=== PATIENT | female | born 1955 | race Caucasian/White ===

== ENCOUNTER → 2017-11-14 14:22 | Outpatient (CLI) | payer OTHER, SELFPAY ==
[2017-11-14 15:52] LABS: Absolute Lymphocyte Count 1.45 X10^3/ul (0.83-4.51); Absolute Neutrophil Count 3.7 X10^3/uL (2.0-7.7); Basophil# 0.02 X10^3/uL; Basophil% 0.3 % (0-1); Eosinophil# 0.14 X10^3/uL; Eosinophils% 2.4 % (0-5); Hematocrit 40.9 % (37-47); Hemoglobin 13.5 g/dl (12.0-15.0); Lymphocyte # 1.45 X10^3/ul (4.0); Mean Corpuscular Hgb 31.4 pg (27.0-32.0); Mean Corpuscular Volume 95.1 fL (81-99); Mean Platelet Vol. 12.5 fl (6.2-12.0); Monocyte# 0.53 X10^3/uL; Monocyte% 9.1 % (0-10); Neutrophil # 3.67 X10^3/uL (2.7-7.7); Neutrophil % 63.2 % (47-70); Platelet Count 142 K/mm3 (150-450); RBC Distribution Width CV 13.5 % (11.6-14.6); RBC Distribution Width SD 45.5 fl (35.1-43.9); White Blood Count 5.8 K/mm3 (4.4-11.0)
[2017-11-14 16:19] LABS: POSITIVE COUNT NO; POSITIVE DIFFERENTIAL NO; POSITIVE MORPHOLOGY NO
[2017-11-14 16:20] LABS: Erythrocyte Sedimentation Rate 5 mm/hr (0-30)
[2017-11-14 16:26] LABS: ALB/GLOB Ratio 1.1 RATIO (0.9-2.4); AST(SGOT) 13 U/L (15-37); Alanine Aminotransfer ALT/SGPT 16 U/L (13-56); Albumin, Serum 3.6 g/dL (3.2-5.0); Alkaline Phosphatase 68 U/L (45-117); Anion Gap 6 (5-15); BUN 22 mg/dL (7-18); BUN/Creat Ratio 22.9 RATIO (10-20); CRP 4.81 mg/L (0.0-3.0); Calcium,Total 8.8 mg/dL (8.5-10.1); Chloride 107 mmol/L (98-107); Creatinine, Serum 0.96 mg/dL (0.55-1.02); EST Glomerular Filtration Rate 63 mL/min (>60); Est Glom Filt Rate - Afr Amer 76 mL/min (>60); Globulin 3.3 g/dL (2.2-4.2); Glucose 90 mg/dL (74-106); Potassium 4.1 mmol/L (3.5-5.1); Protein, Total 6.9 g/dL (6.4-8.2); Sodium Level 144 mmol/L (136-145)
== END ==
PROVIDERS: Family Provider Student in an Organized Health Care Education/Training Program; PCP Student in an Organized Health Care Education/Training Program; Visit Provider Internal Medicine Rheumatology
DX: M06.4 Inflammatory polyarthropathy (principal); M35.00 Sjogren syndrome, unspecified; E03.9 Hypothyroidism, unspecified
CPT/HCPCS: 36415; 80053; 85025; 85652; 86140

== ENCOUNTER → 2018-06-04 10:44 | Outpatient (CLI) | payer OTHER, SELFPAY ==
[2016-03-08 13:14] VITALS: BMI 31.7
[2018-06-04 12:06] LABS: Absolute Lymphocyte Count 1.29 X10^3/ul (0.83-4.51); Absolute Neutrophil Count 3.2 X10^3/uL (2.0-7.7); Basophil# 0.04 X10^3/uL; Basophil% 0.8 % (0-1); Eosinophil# 0.12 X10^3/uL; Eosinophils% 2.4 % (0-5); Hematocrit 44.2 % (37-47); Hemoglobin 14.7 g/dl (12.0-15.0); Lymphocyte # 1.29 X10^3/ul (4.0); Lymphocyte % 25.3 % (19-41); Mean Corp Hgb Conc 33.3 g/gl (32-36); Mean Corpuscular Hgb 30.8 pg (27.0-32.0); Mean Corpuscular Volume 92.7 fL (81-99); Mean Platelet Vol. 12.3 fl (6.2-12.0); Monocyte# 0.49 X10^3/uL; Monocyte% 9.6 % (0-10); Neutrophil # 3.15 X10^3/uL (2.7-7.7); Neutrophil % 61.9 % (47-70); Platelet Count 155 K/mm3 (150-450); RBC Distribution Width CV 13.7 % (11.6-14.6); RBC Distribution Width SD 45.1 fl (35.1-43.9); Red Blood Count 4.77 M/mm3 (4.2-5.4); White Blood Count 5.1 K/mm3 (4.4-11.0)
[2018-06-04 12:08] LABS: POSITIVE COUNT NO; POSITIVE DIFFERENTIAL NO; POSITIVE MORPHOLOGY NO
[2018-06-04 12:15] LABS: Erythrocyte Sedimentation Rate 16 mm/hr (0-30)
[2018-06-04 12:19] LABS: ALB/GLOB Ratio 0.9 RATIO (0.9-2.4); AST(SGOT) 12 U/L (15-37); Alanine Aminotransfer ALT/SGPT 17 U/L (13-56); Albumin, Serum 3.4 g/dL (3.2-5.0); Alkaline Phosphatase 70 U/L (45-117); Anion Gap 8 (5-15); BUN 18 mg/dL (7-18); BUN/Creat Ratio 18.3 RATIO (10-20); CRP 3.32 mg/L (0.0-3.0); Calcium,Total 8.8 mg/dL (8.5-10.1); Chloride 109 mmol/L (98-107); Creatinine, Serum 0.98 mg/dL (0.55-1.02); EST Glomerular Filtration Rate 61 mL/min (>60); Est Glom Filt Rate - Afr Amer 74 mL/min (>60); Globulin 3.7 g/dL (2.2-4.2); Glucose 67 mg/dL (74-106); Protein, Total 7.1 g/dL (6.4-8.2); Sodium Level 144 mmol/L (136-145)
== END ==
PROVIDERS: Family Provider Student in an Organized Health Care Education/Training Program; PCP Student in an Organized Health Care Education/Training Program; Referring Provider Internal Medicine Rheumatology; Visit Provider Internal Medicine Rheumatology
DX: M06.4 Inflammatory polyarthropathy (principal); M35.00 Sjogren syndrome, unspecified; E03.9 Hypothyroidism, unspecified
CPT/HCPCS: 36415; 80053; 85025; 85652; 86140

== ENCOUNTER → 2020-10-16 11:44 | Outpatient (CLI) | payer OTHER, SELFPAY ==
--- NOTE | 2020-10-18 14:39 | STRESSREP ---
Stress Test Report Date: 10/16/2020 Procedure: Exercise tolerance test Indications: Chest pain Consent: Per the patient Procedure: The patient exercised on a Markos protocol for 6 minutes achieving a peak heart rate of 166 bpm (105% predicted maximal heart rate) with a peak blood pressure 180/60 mmHg and a peak MET capacity of approximately 7 MET's. The baseline ECG demonstrated normal sinus rhythm. The peak exercise ECG demonstrated no significant ischemic changes. [There were no cardiac dysrhythmias pretest, during exercise, or recovery]. The functional capacity was considered normal for age. The patient had no complaint of chest discomfort during exercise or recovery. The examination was discontinued secondary to dyspnea. Impression: 1. Technically adequate (percent predicted maximal heart rate greater than 85%) exercise tolerance test 2. Stress test is negative for exercise-induced chest pain. 3. Stress test test is negative for exercise-induced EKG changes of ischemia. 4. Functional capacity is normal for age This note was generated with Impress[employer] software. It may contain incorrect words, spelling, and punctuation that were not noted in checking the note before signing.
== END ==
PROVIDERS: PCP Student in an Organized Health Care Education/Training Program; Referring Provider Student in an Organized Health Care Education/Training Program; Visit Provider Student in an Organized Health Care Education/Training Program
DX: R07.9 Chest pain, unspecified (principal); R53.83 Other fatigue; R06.00 Dyspnea, unspecified
CPT/HCPCS: 93017

== ENCOUNTER 2020-12-16 15:56 | Emergency (ER) | payer OTHER, SELFPAY ==
[2020-12-16 15:57] VITALS: BP 164/92; PULSE 78; RESP 14; TEMP 36.6; O2SAT 96; BMI 32.1
--- NOTE | 2020-12-16 16:41 | EDS_ITS ---
HPI History of Present Illness Chief Complaint: Upper Extremity Injury Informant: patient Occured/Mechanism Mechanism/Context: Yes injury Onset/Context/Timing Onset: Today Context: Sudden Onset Timing: Continuous Current Severity: Mild Maximum Severity: Mild Narrative Narrative: 65-year-old female right hand dominant. Prior carpal tunnel intake remains tenosynovitis surgery in the left wrist. Tripped and fell today at home landed awkwardly on her left wrist also struck her left cheek and left knee on the ground. Denies any LOC not on any blood thinners. No other complaints. Prior similar symptoms: No Recent Illness/Hospitalization: No PFSH PFSH Home Medications levothyroxine 75 mcg PO DAILY 03/08/16 [History Last Taken Unknown] Allergy/AdvReac Type Severity Reaction Status Date / Time Sulfa (Sulfonamide Allergy Unknown Verified 12/16/20 15:59 Antibiotics) Social History Smoking Status: Never smoker ROS ROS ED ROS Narrative Denies recent illness. Review of Systems ROS Unobtainable: Denies due to encephalopathy Eyes Eyes: Denies change in vision ENT ENT ED: Reports ear pain; Denies sore throat Cardiovascular Cardiovascular: Denies chest pain Respiratory/Chest Respiratory/Chest: Denies cough or dyspnea Gastrointestinal Gastrointestinal: Denies abdominal pain, diarrhea, nausea or vomiting Genitourinary Genitourinary ED: Denies dysuria Musculoskeletal Musculoskeletal: Denies myalgias Integumentary Denies rash Neurologic Neurologic: Denies headache(s) Psychiatric Psychiatric: Denies depression Endocrine Endocrinology: Denies polyuria Hematologic/Lymphatic Hematologic/Lymphatic: Denies easy bruising Allergic/Immunologic Allergic/Immunologic ED: Denies urticaria EXAM Physical Exam Narrative Exam Narrative: Well-appearing female no acute distress. Vital signs stable afebrile. Minor abrasion left cheek. Scalp no hematoma. Neck nontender. Lungs are clear. Heart regular rhythm. Chest were nontender. Abdomen soft nontender. Back nontender. Mild abrasion left knee normal range of motion no deformity. Left wrist mildly tender. No gross bony deformity. Limited flexion extension due to pain. Able to open close her hand. Normal radial pulse. Proximal forearm left elbow and shoulder are unremarkable. Right upper extremity is unremarkable. Neurologically she is awake alert with no focal motor deficits. Const Vital Signs: 12/16/20 15:57 Temperature 97.8 F Temperature Source Temporal Pulse Rate 78 Respiratory Rate 14 Blood Pressure 164/92 H Blood Pressure Mean 116 Pulse Ox 96 Oxygen Delivery Method Room Air Positive well nourished and well developed General Appearance ED: well developed HEENT Reports moist mucous membranes HEENT Narrative: Mild abrasion left cheek. Pupils round reactive light. normocephalic and trauma Eyes PERRL and EOMs intact bilaterally Neck full ROM and supple General: Negative for tenderness Chest Wall inspection of chest normal and palpation of chest normal Resp normal respiratory effort and clear to auscultation bilaterally Cardio regular rate, regular rhythm and no murmurs GI non-tender and non-distended Auscultation: normoactive bowel sounds Palpation: soft; Negative for tender Back/Spine no CVA tenderness General Back: Negative for CVA tenderness Cervical Spine: Negative for cervical spine tenderness Thoracic Spine / Upper Back: Negative for thoracic spinal tenderness Lumbar Spine / Lower Back: Negative for lumbar spinal tenderness Extremity normal to inspection and full ROM Extremity Narrative: Except minor abrasion left knee with normal flexion- extension. Also left wrist tender with decreased range of motion. General Extremety ED: Negative for edema General Extremity: Negative for edema Neuro oriented x3 Sensorium / Orientation: alert, oriented to person, oriented to place, oriented to time and orientation impaired Psych mental status grossly normal Mood & Affect: Negative for depressed or tearful Skin Lesions: no lesions Rashes: no rashes MDM MDM MDM Narrative Medical decision making narrative: Patient tripped and fell rule out wrist fracture x-ray pending. Also minor left cheek and knee abrasions. Radiography Diagnostic Testing: Wrist x-ray 3 views interpreted by myself shows no acute abnormality. No fracture or dislocation. Went over x-ray with patient. Discharge Plan Triage Chief Complaint: Upper Extremity Injury ED Provider: Omi Negron Dx/Rx/DC Orders Clinical Impression: Left wrist sprain, Abrasion of face, Abrasion of knee, left Instructions: ED Wrist Sprain Prescriptions: No Action levothyroxine 75 MCG tablet 75 mcg PO DAILY RF: 0 Primary Care Provider: Babar De La Garza Referrals: Babar De La Garza DO [Primary Care Provider] - 1 Week if not improving Activity Restrictions/Additional Instructions: Your x-rays are unremarkable. Ice and elevate your left wrist. Tylenol for pain and swelling and Motrin. If not improving in 1 week have it rossy-rayed at this time there is no broken bones noted. Disposition Disposition: Home, self care
--- NOTE | 2020-12-16 16:45 | RAD_ITS ---
STUDY: X-RAY - LEFT WRIST REASON FOR EXAM: Female, 65 years old. wrist injury TECHNIQUE: 3 view(s) of the wrist were obtained. COMPARISON: None. FINDINGS: Normal visualized distal radius and ulna. Normal radiocarpal articulation. Normal distal radioulnar articulation. Normal carpal bones. Normal carpal articulations. There is degenerative arthrosis of the carpometacarpal articulation of the thumb. Normal second through fifth carpometacarpal articulations. Normal visualized metacarpal bones. The soft tissue structures are unremarkable. There is no demonstrated acute fracture. RAD/Wrist min 3 Views IMPRESSION: No definite acute or significant abnormality seen. Electronically Signed: Tal Hawk MD at 18:00 EDT , Service support ,
== END 2020-12-16 18:04 | disposition home or self-care (01) ==
LOC: ED 17:26
PROVIDERS: Emergency Provider Emergency Medicine; PCP Student in an Organized Health Care Education/Training Program
DX: S63.502A Unspecified sprain of left wrist, initial encounter (principal); S00.81XA Abrasion of other part of head, initial encounter; S80.212A Abrasion, left knee, initial encounter; W01.0XXA Fall on same level from slipping, tripping and stumbling without subsequent striking against object, initial encounter; Y93.9 Activity, unspecified; Y92.009 Unspecified place in unspecified non-institutional (private) residence as the place of occurrence of the external cause
CPT/HCPCS: 73110; 99282

== ENCOUNTER → 2021-01-15 12:23 | Outpatient (CLI) | payer OTHER, SELFPAY ==
[2020-12-16 15:57] VITALS: BMI 32.1
--- NOTE | 2021-01-15 12:28 | US_ITS ---
STUDY: RENAL ULTRASOUND - COMPLETE REASON FOR EXAM: Female, 65 years old. Recurring UTIs. TECHNIQUE: Ultrasound evaluation of the kidneys was performed with real-time and static menard-scale imaging. COMPARISON: None. FINDINGS: RIGHT KIDNEY: Normal location of the right kidney, which is normal in size. The right kidney measures 9.5 cm x 5 cm x 3.8 cm. There is a normal cortex of the right kidney. The renal cortex measures 1.1 cm. There is no right renal mass or cyst. There are no right renal calculi. There is no right hydronephrosis. DISTAL RIGHT URETER: There is non-visualization of the distal right ureter. There is no demonstrated right ureterovesical junction calculus. There is a visualized right ureteral jet. LEFT KIDNEY: Normal location of the left kidney, which is normal in size. The left kidney measures 10.4 cm x 4.5 cm x 4.3 cm. There is a normal cortex of the left kidney. The renal cortex measures 1.1 cm. There is no left renal mass or cyst. There are no left renal calculi. There is no left hydronephrosis. DISTAL LEFT URETER: There is non-visualization of the distal left ureter. There is no demonstrated left ureterovesical junction calculus. There is a visualized left ureteral jet. BLADDER: The distended urinary bladder has a volume of 121 ml. There is a normal wall thickness of the distended urinary bladder. There is no demonstrated mass within the urinary bladder. There are no demonstrated bladder calculi. US/Kidney and Bladder IMPRESSION: Normal ultrasound of the kidneys and urinary bladder. Electronically Signed: Graham Colvin MD at 21:54 EDT , Service support ,
== END ==
PROVIDERS: PCP Student in an Organized Health Care Education/Training Program; Referring Provider Urology; Visit Provider Urology
DX: N39.0 Urinary tract infection, site not specified (principal)
CPT/HCPCS: 76770

== ENCOUNTER 2023-05-29 14:44 | Emergency (ER) | payer OTHER, SELFPAY ==
[2023-05-29 14:45] VITALS: BP 140/72; PULSE 69; RESP 16; TEMP 36.2; O2SAT 96; BMI 30.2
[2023-05-29 15:39] LABS: Mucous, Urine 0 SEEN /hpf (<or=2+); Red Blood Cells-Urine 0 SEEN /hpf (0-5); Squamous Epithelial Cells - UA 0 SEEN /hpf (5-10); White Blood Cells 0 SEEN /hpf (0-5)
--- NOTE | 2023-05-29 15:41 | US_ITS ---
EXAM: US ABDOMEN LIMITED, RIGHT UPPER QUADRANT CLINICAL INDICATION: RUQ pain TECHNIQUE: Real-time ultrasound of the right upper quadrant with image documentation. COMPARISON: No relevant prior studies available. FINDINGS: LIVER: Normal. There is normal echotexture. No focal hepatic lesion. No intrahepatic biliary ductal dilation. GALLBLADDER: Normal. No shadowing gallstone. No gallbladder wall thickening is demonstrated. No pericholecystic fluid. Negative sonographic Perry''s sign. COMMON BILE DUCT: Unremarkable as visualized. The proximal common bile duct is normal size. PANCREAS: Unremarkable as visualized. No focal abnormality is demonstrated in the pancreas. No pancreatic ductal dilatation. RIGHT KIDNEY: Normal. There is no hydronephrosis. No shadowing calculus. No focal lesion or perinephric collection is demonstrated. US/Gallbladder IMPRESSION: Normal right upper quadrant ultrasound. Electronically Signed: Salvador Colon MD at 16:53 EST ,
--- NOTE | 2023-05-29 15:41 | ED.VIS.GI ---
HPI HPI - GI History of Present Illness Chief Complaint: Abd Pain Narrative Narrative: 68-year-old female past medical history of hypothyroidism presents with right upper quadrant pain that she has had since yesterday evening. She denies that it is associated with food. She states that it is a fleeting pain and discomfort that is in the right upper quadrant. It comes every 10 to 12 seconds and only lasts perhaps a 1 to 3 seconds. She called her primary care provider who advised her to come in for evaluation. She denies any fevers or chills, no nausea or vomiting, no exacerbating or alleviating factors. She does not have any dysuria or hematuria, no problems with bowel movements, last normal bowel movement was this morning. She presents because of the right upper quadrant pain. She denies any past abdominal surgical history. [facility] Home Medications levothyroxine 75 mcg tablet 75 mcg PO DAILY 03/08/16 [History Last Taken Unknown] Allergy/AdvReac Type Severity Reaction Status Date / Time Sulfa (Sulfonamide Allergy Unknown Verified 05/29/23 14:44 Antibiotics) Social History Smoking Status: Never smoker ROS ROS ED ROS Narrative Constitutional: No fever, no chills. HEENT: No sore throat. No neck pain. No loss of vision. No rhinorrhea. Cardiovascular: No chest pain. No palpitations. No pedal edema. Respiratory: No cough, no shortness of breath. Abdominal: Right upper quadrant abdominal pain. Occurs every 10 to 12 seconds, last 1 to 3 seconds. No nausea. No vomiting. Genitourinary: No dysuria. No hematuria. Musculoskeletal: No myalgias. No arthralgias. Neurologic: No headaches. No dizziness. No lightheadedness. Skin: No rash. No change in color. Psychiatric: No depression. No anxiety. EXAM Physical Exam Narrative Exam Narrative: Afebrile. Vital signs noted. HEENT: Normocephalic. Atraumatic. PERRL, EOMI. Neck soft and supple. No point tenderness or step off. Cardiovascular: Regular rate and rhythm. No murmurs, rubs, or gallops appreciated. Respiratory: No tachypnea. Lungs clear to auscultation bilaterally. Gastrointestinal: Abdomen soft, minimal tenderness to palpation right upper quadrant with normoactive bowel sounds. No rebound or guarding. Negative Perry sign. Neurological: Awake. Alert. Nonfocal, nonlateralizing. Skin: No rash. Normal color. No pallor. Musculoskeletal: No pedal edema. Full range of motion extremities. Const Vital Signs: 05/29/23 14:45 Temperature 97.1 F L Temperature Source Temporal Pulse Rate 69 Respiratory Rate 16 Blood Pressure 140/72 H Blood Pressure Mean 94 Pulse Ox 96 Oxygen Delivery Method Room Air MDM MDM MDM Narrative Medical decision making narrative: In the differential diagnosis is biliary colic versus cholecystitis. However, she is not showing any signs of fever or jaundice. I have low concern for cholangitis. CBC, CMP, and lipase will be obtained. I do feel ultrasound of the gallbladder is indicated rather than CT. Her pain is localized to the right upper quadrant underneath the rib cage. I have low concern for pneumonia as show her history and physical does not demonstrate or support this. I reviewed her laboratory work and she has normal white count of 5.9, hemoglobin normal at 14.2, hematocrit 43.4, normal platelet count of 155, CMP is grossly unremarkable except for chloride of 110, glucose normal at 88, total bili normal at 0.40, AST low at 13. ALT normal at 16. Lipase normal at 33. At this point in time, I reviewed the radiology report of the right upper quadrant ultrasound and there is no evidence of cholelithiasis or cholecystitis. I am unsure as to the cause of her reported right upper quadrant pain. Upon repeat examination she is resting comfortably on the cot at approximately 1335. I feel that she can be discharged to follow-up with her primary care provider and take [id number] analgesics as needed. She has a nonsurgical abdomen. She may require outpatient HIDA scan. I do not feel chest x-ray is indicated. Return instructions to the emergency department were reviewed. Disposition is discharged home in stable condition. History & Record Review Discussion w/independent historian: Patient Additional record(s) reviewed:: Prior ED visit and Prior labs Lab Data Attestation: I reviewed the patient's lab results. Labs: Laboratory Results - last 24 hr 05/29/23 05/29/23 15:35 15:50 WBC 5.9 RBC 4.62 Hgb 14.2 Hct 43.4 MCV 93.9 MCH 30.7 MCHC 32.7 RDW Std Deviation 46.0 H RDW Coeff of Nicky 13.4 Plt Count 155 MPV 11.9 Immature Gran % (Auto) 0.200 Neut % (Auto) 66.9 Lymph % (Auto) 20.9 [place] % (Auto) 9.4 Eos % (Auto) 1.7 Baso % (Auto) 0.9 Absolute Neuts (auto) 3.9 Absolute Lymphs (auto) 1.22 Nucleated RBC % 0 Sodium 141 Potassium 4.0 Chloride 110 H Carbon Dioxide 26.0 Anion Gap 5 BUN 18 Creatinine 0.96 Estim Creat Clear Calc 49.78 Est GFR (MDRD) Af Amer 74 Est GFR (MDRD) Non-Af 62 BUN/Creatinine Ratio 18.7 Glucose 88 Calcium 9.4 Total Bilirubin 0.40 AST 13 L ALT 16 Alkaline Phosphatase 63 Total Protein 7.0 Albumin 3.4 Globulin 3.6 Albumin/Globulin Ratio 0.9 Lipase 33 Urine Color Yellow Urine Clarity Clear Urine pH 6.0 Ur Specific [place] 1.010 Urine Protein Negative Urine Glucose (UA) Normal Urine Ketones Negative Urine Occult Blood Negative Urine Nitrite Negative Urine Bilirubin Negative Urine Urobilinogen Normal Ur Leukocyte Esterase Negative Urine RBC 0 SEEN Urine WBC 0 SEEN Ur Squamous Epith Cells 0 SEEN Urine Bacteria RARE Urine Mucus 0 SEEN Radiography Diagnostic Testing: Clinical Impression(s) from Imaging Studies Gallbladder Ultrasound 05/29/23 15:41 IMPRESSION: Normal right upper quadrant ultrasound. Electronically Signed: Salvador Colon MD at 16:53 EST Reading Location ID and State: [address] [place] [address] Tel , Service support , Discharge Plan Triage Chief Complaint: Abd Pain ED Provider: Khoa Mackenzie Dx/Rx/DC Orders Clinical Impression: Abdominal pain, RUQ Instructions: ED Abdominal Pain Unkn Cause Fem, ED Pain, Acute, Uncertain Cause Prescriptions: No Action levothyroxine 75 MCG tablet 75 mcg PO DAILY Primary Care Provider: Babar De La Garza Referrals: Babar De La Garza, DO [Primary Care Provider] - 3-5 Days if not improving Disposition Disposition: Home, Self Care
[2023-05-29 15:59] LABS: Absolute Lymphocyte Count 1.22 X10^3/uL (0.83-4.51); Absolute Neutrophil Count 3.9 X10^3/uL (2.0-7.7); Basophil# 0.05 X10^3/uL; Basophil% 0.9 % (0-1); Eosinophils% 1.7 % (0-5); Hematocrit 43.4 % (37-47); Hemoglobin 14.2 g/dL (12.0-15.0); Lymphocyte # 1.22 X10^3/ul (0.83-4.51); Lymphocyte % 20.9 % (19-41); Mean Corp Hgb Conc 32.7 g/dL (32-36); Mean Corpuscular Hgb 30.7 pg (27.0-32.0); Mean Corpuscular Volume 93.9 fL (81-99); Mean Platelet Vol. 11.9 fl (6.2-12.0); Monocyte# 0.55 X10^3/uL; Monocyte% 9.4 % (0-10); NRBC Flagged by Analyzer 0 % (0-5); Neutrophil # 3.92 X10^3/uL (2.7-7.7); Neutrophil % 66.9 % (47-70); Platelet Count 155 K/mm3 (150-450); RBC Distribution Width CV 13.4 % (11.6-14.6); Red Blood Count 4.62 M/mm3 (4.2-5.4); White Blood Count 5.9 K/mm3 (4.4-11.0)
[2023-05-29 16:02] LABS: Color, Urine Yellow (Yellow); Glucose, Dipstick Normal (Normal); Ketone-Dipstick Negative (Negative); Leukocyte Esterase-Dipstick Negative /ul (Negative); Nitrite-Dipstick Negative (Negative); Occult Blood-Urine Negative /ul (Negative); Protein-Dipstick Negative (Negative); Urine Bilirubin Dipstick Negative (Negative); Urine Clarity Clear (Clear); Urine Urobilinogen Normal (Normal)
[2023-05-29 16:21] LABS: Bacteria RARE /hpf (None Seen)
[2023-05-29 16:24] LABS: ALB/GLOB Ratio 0.9 RATIO (0.9-2.4); AST(SGOT) 13 U/L (15-37); Alanine Aminotransfer ALT/SGPT 16 U/L (13-56); Albumin, Serum 3.4 g/dL (3.2-5.0); Alkaline Phosphatase 63 U/L (45-117); Anion Gap 5 (5-15); BUN 18 mg/dL (7-18); BUN/Creat Ratio 18.7 RATIO (10-20); Calcium,Total 9.4 mg/dL (8.5-10.1); Chloride 110 mmol/L (98-107); Creatinine, Serum 0.96 mg/dL (0.55-1.02); EST Glomerular Filtration Rate 62 mL/min (>60); Est Glom Filt Rate - Afr Amer 74 mL/min (>60); Estimated Creatinine Clearance 49.78 ml/min; Globulin 3.6 g/dL (2.2-4.2); Glucose 88 mg/dL (74-106); Lipase 33 U/L (13-75); Sodium Level 141 mmol/L (136-145)
== END 2023-05-29 17:44 | disposition home or self-care (01) ==
PROVIDERS: Emergency Provider Emergency Medicine; PCP Student in an Organized Health Care Education/Training Program; Visit Provider Emergency Medicine
DX: R10.11 Right upper quadrant pain (principal)
CPT/HCPCS: 76705; 80053; 81001; 83690; 85025; 99283; A4216

== ENCOUNTER 2024-05-13 11:30 | Outpatient (RCR) | payer OTHER, SELFPAY ==
--- NOTE | 2024-04-15 15:02 | HP.OTEVAL_ITS ---
Patient's Visit Information Visit Information Visit Information: CRISTIANO BEAVER is a 69 year old F, referred to Occupational Therapy by Dr. Antony Cox MD, with a diagnosis of R hand swelling. Date of Evaluation: 04/15/24 Occupational Therapist: Addei Rodriguez Subjective Subjective: This 69 year old female arrives with dx of R hand swelling. pt reports swelling started months ago. Pt was given prednisone 04/13/24 and reports swelling has come down significantly since then. pt did purchase pair of hemp gloves last friday04/09/24 has not used much yet. pt does report she has arthritis and she as well as Dr believes this can be a contributing factor to swelling of R hand. reports the pain in the wrist region specifically radial side around CMC joint. pt reports dealing with arthritis for past year. pt is R hand dominant. Pt is not currently working. enjoys reading watching grandchildren. Pain R cmc region: Current Pain Intensity: 8 Objective Objective/Observation: arrives no bracing with slight swelling of R hand. no redness or warm felt in hand. ROM Wrist: R 50/55 L 60/60 MP: R 35 L 45 IP: R 50 L 60 Radial Abduction: R 55 L 95 Palmar Abduction: R 60 L 75 MP: R D2 MP 75 PIP: R D2 PIP 65 ROM Comments: IF 6 cm, from palm and RF 3 cm form palm Strength Mine Surveyor: R 20# L 35# Lateral Pinch: R 3# L 8# Tripod Pinch: R0# L 5# Edema Wrist: L 16.5 R 15.5 cm Other: R MCP 18.5 L 17.5 cm R 17.5 R 18 cm Sensation Sensation Comments: denies Quick DASH-Disab of Arm,Shoulder& Hand Quick DASH Score: 31.8175 Goals Goal:: pt will improve R hand inclusion special education teacher equal to non affected side (35#) in order to maximize I in ADL and IADL tasks pt will improve R hand tripod and lateral pinch strength to 5# or more in order to maximize I in ADL and IADL tasks Goal:: pt will improve wrist ROM equal to non affected side in order to maximize I in self care and home management tasks pt will demonstrate the ability to make full composite fist with R hand in order to maximize home management and self care tasks pt will improve R hand thumb joint AROM equal to non affected side in order to maximize I in home management and self care tasks Goal:: pt will decrease pain in R hand thumb region to 3/10 or less to maximize I in functional tasks Goal:: Pt will decrease swelling of R wrist equal to non affected side (15.5 cm ) in order to maximize functional use of R hand and promote ROM Goal:: pr will verbalize/ demonstrate 100% accuracy in joint protection and positioning of RUE during all functional tasks Goal:: pt will improve quick dash score by 10 points or more (31.8) in order to maximize use of RUE Goal:: pt will verbalize/ demonstrate 100% accuracy in proper bracing/ compression use for R UE to decrease pain and swelling Rehabilitation General Assessment: This 69 year old female arrives with dx of swelling in R hand. pt saw Dr Antony Cox who believes it may be due to arthritis of R hand and prescribed pt prednisone pack. Pt swelling has gone down significantly since starting medication however concern for return of swelling once off medication as well as pain in R wrist/ thumb region. Pt demonstrates lack of ROM of R wrist as well as thumb and digits. pt also demonstrates approx 1 cm difference of swelling in R hand at eval decreased strength and icnreased pain of R hand. pt would benefit from OT services in order to provide ed on compression gloves, gentle AROM, pain management modalities, acitivity modicification joint protection and bracing to prevent future swelling 1-2x a week for 4-6 weeks Rehabilitation Potential: Good Anticipated Interventions Anticipated Interventions: A/AAROM/PROM, Strengthening, Edema Control, Triggerpoint Release, Modalities, Orthoses, Joint Protection/Energy Conservation, Ergonomic Education, Education re assistive Equipment, Education re Diagnosis and Home Program Visit Plan Frequency: 1-2x /Week Duration: 4-6 Weeks General Plan: bracing activity modification compression glove AROM/AAROM joint protection pain management TEXT: Thank you for the opportunity to evaluate your patient. For Medicare and Medicare HMO plans, please review the plan of care and approve it. It will need to be FAXED BACK to us at [phone] for Medicare purposes. Please let me know if there are questions or concerns regarding this plan of care. Physician Signature: Date:
--- NOTE | 2024-05-13 12:15 | HP.OTDCSUM ---
Discharge Summary D/C Summary: It has been my pleasure to treat CRISTIANO BEAVER under orders from Dr. Antony Cox MD, for the diagnosis of R hand swelling for a total of 5 visit(s). Please see the following information for a summary of their discharge status. Overall Improvement % Improvement: 60 Objective Objective/Function: R wrist 60/50 L wrist 60/50 R hand thumb MP 45 and IP 40 L hand thumb MP 50 and IP 60 R hand hose suspender cutter 25# L hand 40# R lateral hand 5# L lateral hand 8# R tripod 1# L tripod 5# Goals Patient Goals: Regain Strength, Decrease Pain, Decrease Swelling/Stiffness, Use Hand/Wrist/Arm Normally Again, Increase ROM, Resume Former Household Responsibilities (Cooking,Cleaning,Yard, etc.) and Resume Hobbies Goal:: pt will improve R hand hose suspender cutter equal to non affected side (35#) in order to maximize I in ADL and IADL tasks R hand 25# progressing not met pt will improve R hand tripod and lateral pinch strength to 5# or more in order to maximize I in ADL and IADL tasks R hand lateral 5# and tripof 1# progressing not met Goal:: pt will improve wrist ROM equal to non affected side in order to maximize I in self care and home management tasks wrist ROM goal met pt continues to have decreased ROM at MP and IP pt will demonstrate the ability to make full composite fist with R hand in order to maximize home management and self care tasks not met pt will improve R hand thumb joint AROM equal to non affected side in order to maximize I in home management and self care tasks not met MP joint 40 and IP joint 45 Goal:: pt will decrease pain in R hand thumb region to 3/10 or less to maximize I in functional tasks goal met Goal:: Pt will decrease swelling of R wrist equal to non affected side (15.5 cm ) in order to maximize functional use of R hand and promote ROM goal met 1 cm dif still at MCP Goal:: pr will verbalize/ demonstrate 100% accuracy in joint protection and positioning of RUE during all functional tasks goal met provided ed and handout Goal:: pt will improve quick dash score by 10 points or more (31.8) in order to maximize use of RUE now 27.27 not met Goal:: pt will verbalize/ demonstrate 100% accuracy in proper bracing/ compression use for R UE to decrease pain and swelling goal met D/C Information Discharge Comments: this 69 year old female seen due to swelling as well as pain in R hand. pt progressed in POC in decreased strength improved ROM as well as strength. ed provided in joint protection and positioning bracing as well as gentle stretch and exercise d/c sentence: If there are questions or concerns regarding this patient's occupational therapy, please fell free to call me at [phone]. Thank you for the referral of this patient. Sincerely, Addie Rodriguez
--- NOTE | 2024-05-13 12:19 | HP.OT.NRP ---
Patient Information Patient Information: CRISTIANO BEAVER was seen in my office for initial evaluation on 04/15/24. The following Plan of Care was established for this patient: POC Established Initial Frequency: 1-2x /Week Initial Duration: 4-6 Weeks Anticipated Interventions Anticipated Interventions: A/AAROM/PROM, Strengthening, Edema Control, Triggerpoint Release, Modalities, Orthoses, Joint Protection/Energy Conservation, Ergonomic Education, Education re assistive Equipment, Education re Diagnosis and Home Program Last Seen Last Seen: This patient was last seen in our office 05/13/24. Pertinent comments regarding their Occupational therapy will appear below: This 69 year old female with dx of hand swelling and pain progressed throughout POC. decreased swelling 1 cm difference now between L and R hand. pt with decreased pain as well as improved ROM and strength at this time. discharge with plan to continue techniques at home. At this point I will be discontinuing this patient from occupational therapy. I would be happy to see this patient again in the future if found appropriate by the physician. Thank you! Addie Rodriguez
== END 2024-05-13 13:18 | disposition home or self-care (01) ==
LOC: OT 11:30
PROVIDERS: PCP Student in an Organized Health Care Education/Training Program; Referring Provider Orthopaedic Surgery; Visit Provider Orthopaedic Surgery
DX: M79.89 Other specified soft tissue disorders (principal)
CPT/HCPCS: 97035; 97110; 97140; 97165; 97530

== ENCOUNTER 2024-11-15 11:30 | Outpatient (RCR) | payer OTHER, SELFPAY ==
--- NOTE | 2024-10-05 15:32 | HP.OTEVAL ---
Patient's Visit Information Visit Information Visit Information: CRISTIANO BEAVER is a 69 year old F, referred to Occupational Therapy by Dr. Antony Cox MD, with a diagnosis of right primary OA of first carpometacarpal joint. Date of Evaluation: 10/04/24 Occupational Therapist: Ana Acosta, KRIS/Gregg, CHT Subjective Subjective: This 69 year old female was seen for OT eval with dx of right primary osteoarthritis of first carpometacarpal joints of right hand. pt states she had difficulty with thumb pain for about a year. pt arrives 1 week and 2 days s/p from a right cmc arthroplasty. ( cmc arthroplasty with tendon transfer and suspension) pt arrives with soft surgical dressing and splint on- pt arrives for custom orthosis to provide support and protection while pts reconstruction of right thumb heals. pt is currently limited with all ADLs and IADLs at this time. pt would like to know what she can do to return to pain free use of her right dominate hand. Pain right hand/wrist: Current Pain Intensity: 2 Pain Intensity Range: 4 ROM Wrist: right wrist 25/30 comfort ROM left WNL CMC: will test at week 4 MP: right 20* left 40 IP: right 15* left 50* Strength Strength Comments: will test later date Sensation Sensation Comments: denies Quick DASH-Disab of Arm,Shoulder& Hand Quick DASH Score: 54.5450 Goals Goal:Daily scar massage when approriate: Yes Goal:ROM equal to unaffected hand: Yes Goal:Food Service Representative/Pinch strength at least 75% of unaffected hand: Yes Comment: will not initiate until week 6-8 unless otherwise indicated by Goal:No pain with affected hand use: Yes Goal:Full use of affected hand in daily activities including work: Yes Other Goal: orthosis use: pt will demo understanding and use of orthosis by end of 1st session. Rehabilitation General Assessment: pt arrives 1 week and 2 days s/p from a right cmc arthroplasty. ( cmc arthroplasty with tendon transfer and suspension) pt is limited with use of her right dominate hand with ADLs and IADLs. pt demo need for skilled OT services 1-2x week for 6-8 weeks to return pt to functional use of right hand. Today pt is in need of custom orthosis to provide support and protection while healing. Therapist gita. custom orthosis ed. pt on use and precautions. pt demo understanding and agree to POC. Rehabilitation Potential: Good Anticipated Interventions Anticipated Interventions: A/AAROM/PROM, Strengthening, Edema Control, Scar Care, Triggerpoint Release, Modalities, Orthoses, Joint Protection/Energy Conservation, Ergonomic Education, Education re assistive Equipment, Education re Diagnosis and Home Program Visit Plan Frequency: 1-2x /Week Duration: 2 Months General Plan: Following [facility] CMC arthroplasty guidelines week 2-4 orthosis- edema control- IP motion in orthosis - finger ROM - scar massage Week 3-4 wrist short arch wrist ROM supported CMC with MP motion Week 4-6 initiate light cmc ROM with all of the above ex. light use of hand with ADLs short hand based thumb brace opposition to LF week 6 week 6-8 light eyelet punch operator strength ensure no MP hyper ext wean from orthosis thumb stabilization week 10-12 functional strength PRE's as tolerated strengthen as tolerate TEXT: Thank you for the opportunity to evaluate your patient. For Medicare and Medicare HMO plans, please review the plan of care and approve it. It will need to be FAXED BACK to us at [phone] for Medicare purposes. Please let me know if there are questions or concerns regarding this plan of care. Physician Signature: Date:
--- NOTE | 2024-11-15 12:37 | HP.OTDCSUM ---
Discharge Summary D/C Summary: It has been my pleasure to treat CRISTIANO BEAVER under orders from Dr. Antony Cox MD, for the diagnosis of right primary OA of first carpometacarpal joint for a total of 6 visit(s). Please see the following information for a summary of their discharge status. Overall Improvement % Improvement: 90 Objective Objective/Function: right wrist 60/30 increased from 20/30* right thumb IP flexion 50* increased from 15* right thumb MP 30 increase from 20* right thumb CMC 10 pt demo opposition to LF pt demo with right architectural administrative assistant strength 20# left is 35# pt making gains with her ROM and now at 6 weeks s/p has transitioned to light PRE and thumb stabilization ex. Goals Patient Goals: Use Hand/Wrist/Arm Normally Again and Be More Independent in ADLS Goal:Daily scar massage when approriate: Yes Goal Progress: Goal Met Goal:ROM equal to unaffected hand: Yes Goal Progress: Goal Met Goal:Military Personnel Specialist/Pinch strength at least 75% of unaffected hand: Yes Goal Progress: Progressing Goal:No pain with affected hand use: Yes Goal Progress: Goal Met Goal:Full use of affected hand in daily activities including work: Yes Goal Progress: Goal Met Other Goal: orthosis use: pt will demo understanding and use of orthosis by end of 1st session. Plan Plan: d/c pt with HEP D/C Information Discharge Comments: pt progressing well and has returned to 90% of IND with ADLs and IADLs- is scheduled to have left CMC arthroplasty done December 08. pt is doing great and reports IND with ADLS d/c sentence: If there are questions or concerns regarding this patient's occupational therapy, please fell free to call me at [phone]. Thank you for the referral of this patient. Sincerely, nAa Acosta, OTR/L, CHT
== END 2024-11-15 19:00 | disposition home or self-care (01) ==
LOC: OT 11:30
PROVIDERS: PCP Student in an Organized Health Care Education/Training Program; Visit Provider Orthopaedic Surgery
DX: M18.11 Unilateral primary osteoarthritis of first carpometacarpal joint, right hand (principal)
CPT/HCPCS: 97110; 97140; 97166; 97530; 97760

== ENCOUNTER 2025-01-24 11:30 | Outpatient (RCR) | payer OTHER, SELFPAY ==
--- NOTE | 2024-12-21 13:15 | HP.OTEVAL ---
Patient's Visit Information Visit Information Visit Information: CRISTIANO BEAVER is a 69 year old F, referred to Occupational Therapy by TIERRA Vines, with a diagnosis of L thumb CMC arthroplasty with tendon transfer and suspension. Date of Evaluation: 12/21/24 Occupational Therapist: Henny Gotti Subjective Subjective: s/p 1 w 6d out from L CMC arthroplasty. no pain at rest. pt had L CMC arthroplasty with tendon transfer and suspension. pt with hx of same surgery on R side on 09/19/24. Pain L thumb: Current Pain Intensity: 0 Pain Intensity Range: 5 Quick DASH-Disab of Arm,Shoulder& Hand Quick DASH Score: 36.3625 Goals Goal:: pt to demo improved strength of unaffected hand by 75% once permitted for strengthening Goal:: pt to demo improved L thumb IP by 15' for active fist pt to demo improved L CMC AROM by ability to oppose to pinky for active use of thumb Goal:: pt to demo no more than 2/10 pain during daily tasks per patient report Goal:: pt to demo good compliance with protocol for improved motion and surgical protection Rehabilitation General Assessment: pt presenting s/p 1w 6d CMC arthroplasty with tendon transfer for custom gita thumb spica for surgical healing. pt presenting with limited AROM of L thumb at this time and pt ed to remain in splint at all times to protect CMC joint from active movement. pt has full AROM of other 4 digits at this time. HEP for thumb IP AROM and to remove splint to move wrist AROM for short arc, minimal motion. Pt ed to complete AROM of shoulder/elbow as well to prevent stiffness. pt would benefit from skilled OT services x1/week for 5 weeks for post op protocol to improve AROM, scar management, and strengthening. Rehabilitation Potential: Good Anticipated Interventions Anticipated Interventions: A/AAROM/PROM, Strengthening, Scar Care, Desensitization, Orthoses and Fine Motor Coord/Tre Visit Plan Frequency: 1x/Week Duration: 5 General Plan: continue per POC for x1/week for 5 weeks for AROM, scar management, and strengthening as it is permitted TEXT: Thank you for the opportunity to evaluate your patient. For Medicare and Medicare HMO plans, please review the plan of care and approve it. It will need to be FAXED BACK to us at [phone] for Medicare purposes. Please let me know if there are questions or concerns regarding this plan of care. Physician Signature: Date:
--- NOTE | 2025-03-22 15:53 | HP.OT.NRP ---
Patient Information Patient Information: CRISTIANO BEAVER was seen in my office for initial evaluation on 12/21/24. The following Plan of Care was established for this patient: POC Established Initial Frequency: 1x/Week Initial Duration: 5 Plan: Cont. Anticipated Interventions Anticipated Interventions: A/AAROM/PROM, Strengthening, Scar Care, Desensitization, Orthoses and Fine Motor Coord/Tre Last Seen Last Seen: This patient was last seen in our office 01/24/25. Pertinent comments regarding their Occupational therapy will appear below: no further apts have been scheduled and due to time lapse in services pt is d/c at this time. At this point I will be discontinuing this patient from occupational therapy. I would be happy to see this patient again in the future if found appropriate by the physician. Thank you! Ana Acosta, OTR/L, CHT
== END 2025-01-24 19:00 | disposition home or self-care (01) ==
LOC: OT 11:30
PROVIDERS: PCP Student in an Organized Health Care Education/Training Program; Referring Provider Physician Assistant; Visit Provider Physician Assistant
DX: M18.12 Unilateral primary osteoarthritis of first carpometacarpal joint, left hand (principal)
CPT/HCPCS: 97110; 97140; 97165; 97530